=== PATIENT | female | born 1990 | race Caucasian/White ===

== ENCOUNTER 2017-07-09 10:06 | Outpatient (CLI) | payer OTHER ==
[~2017-07-09 10:06] MED LIST: IBUPROFEN800 MG PO; PRENATAL TABLE1 EAC3 PO; PROAIR RESPICL90 MCG IH; SYMBICORT60 INHALA1 IH
[2017-07-09 10:29] VITALS: BP 114/69
== END 2017-07-09 11:30 | disposition home or self-care (01) ==
LOC: LDRP-OP 10:06 → 2WEST 10:08 → LDRP-OP 08-30 08:24
DX: O26.893 Other specified pregnancy related conditions, third trimester (principal); O99.513 Diseases of the respiratory system complicating pregnancy, third trimester; J45.909 Unspecified asthma, uncomplicated; Z3A.37 37 weeks gestation of pregnancy
CPT/HCPCS: 59025; G0378

== ENCOUNTER 2017-08-08 02:19 | Inpatient (IN) | payer OTHER ==
[2017-08-08] VITALS (12 sets, daily range): BP systolic 107–128; BP diastolic 56–75
[~2017-08-08] VITALS: Ht 160 cm; Wt 60.3 kg
[2017-08-08] MEDS ORDERED: IBUPROFEN800 MG PO (03:24)
[2017-08-09 07:45] VITALS: BP 96/63
[2017-08-09 08:05] VITALS: BP 114/66
[2017-08-09 08:22] LABS: EOSINOPHIL (%) 1.7 % (0-5); EOSINOPHIL COUNT 0.2 K/uL (0-0.3); HEMATOCRIT 37.4 % (36.0-46.0); IMMATURE GRANULOCYTE (%) 0.6 % (0.0-0.7); IMMATURE GRANULOCYTE COUNT 0.1 K/uL; INSTRUMENT ABS NEUTROPHIL CT 7.1 K/uL; LYMPHOCYTE COUNT 1.2 K/uL (1.0-2.8); MCH 32.3 PG (29.0-34.0); MCHC 32.4 G/DL (30.0-36.0); MCV 99.7 FL (83-99); MEAN PLAT.VOLUME 11.4 uM^3 (9.5-12.4); MONOCYTE (%) 4.8 % (3-12); MONOCYTE COUNT 0.4 K/uL (0-0.8); NEUTROPHIL COUNT 7.1 K/uL (1.8-6.4); PLATELET COUNT 135 K/uL (156-360); RBC DIS.WIDTH-CV 14.1 % (11.8-14.6); RED BLOOD COUNT 3.75 M/uL (3.80-5.20)
[2017-08-09 14:15] VITALS: BP 103/71
[2017-08-10 08:04] VITALS: BP 87/59
== END 2017-08-10 13:00 | disposition home or self-care (01) | DRG 775 ==
LOC: LDRP-OP 02:19 → 2WEST 02:20 → LDRP-OP 08-30 11:55
PROVIDERS: Midwife
DX: O70.0 First degree perineal laceration during delivery (principal); O62.3 Precipitate labor; O48.0 Post-term pregnancy; O99.824 Streptococcus B carrier state complicating childbirth; O99.52 Diseases of the respiratory system complicating childbirth; J45.909 Unspecified asthma, uncomplicated; Z3A.41 41 weeks gestation of pregnancy; Z37.0 Single live birth
CPT/HCPCS: 85025; 86850; 86900; 86901; 90686; J2210; J2590